=== PATIENT | female | born 1985 | race Caucasian/White ===

== ENCOUNTER 2017-05-17 01:38 | Emergency (ER) | payer BC ==
[2017-05-17] MEDS ORDERED: Morphine 4 MG/ML Syringe IVPUSH ONE (01:43)
[2017-05-17] MEDS ORDERED: Ondansetron 4 MG/2 ML SDV IVPUSH ONE (01:44)
[2017-05-17 02:06] LABS: CHLORIDE,CL 108 mEq/L (98-106); SODIUM,NA 139 mEq/L (136-145)
--- NOTE | 2017-05-17 02:09 | EDM.PDOC ---
ED HPI GENERAL MEDICAL PROBLEM - General Time Seen by Provider: 05/17/17 01:43 Source of Information: Reports: Patient - History of Present Illness INITIAL COMMENTS - FREE TEXT/NARRATIVE: This patient is a pleasant 32 year old female that presents to the ER. Patient reports that she was awakened at midnight by her abdominal pain. Patient reports that the pain is in her upper/lower left abdomen and is stabbing and twisting. Patient reports that the pain is constant. The patient reports eating popcorn about 2 days ago. Patient reports the pain has gradually worsened. She denies cp, soa, n, v, d, f, pelvic pain, pelvic cramping, vaginal bleeding. Her LMP was about 2 weeks ago. Patient does appear uncomfortable in pain. 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 Left Abdominal Pain Score (Numeric/FACES): 8 - Related Data Allergies Allergy/AdvReac Type Severity Reaction Status Date / Time ciprofloxacin [From Cipro] Allergy Blisters Verified 05/17/17 01:59 Home Meds: Home Meds Norethindrone-E.estradiol-Iron [Cgspfpqn-Twreug-Iejj 1-0.02 mg] 1 each PO DAILY 05/17/17 [History] Sertraline HCl 100 mg PO DAILY 05/17/17 [History] ED ROS GENERAL - Review of Systems Review Of Systems: See Below Constitutional: Reports: No Symptoms HEENT: Reports: No Symptoms Respiratory: Reports: No Symptoms Cardiovascular: Reports: No Symptoms Endocrine: Reports: No Symptoms GI/Abdominal: Reports: Abdominal Pain. Denies: Diarrhea, Nausea, Vomiting : Reports: Urgency. Denies: Dysuria, Flank Pain, Frequency, Incontinence, Pain, Urinary Retention Musculoskeletal: Reports: No Symptoms Skin: Reports: No Symptoms Neurological: Reports: No Symptoms Psychiatric: Reports: No Symptoms Hematologic/Lymphatic: Reports: No Symptoms Immunologic: Reports: No Symptoms ED EXAM, GI/ABD - Physical Exam Exam: See Below Exam Limited By: No Limitations General Appearance: Alert, WD/WN, No Apparent Distress, Other (appears in pain) Eyes: Bilateral: Normal Appearance Ears: Normal External Exam, Normal Canal, Hearing Grossly Normal, Normal TMs Nose: Normal Inspection, Normal Mucosa, No Blood Throat/Mouth: Normal Inspection, Normal Lips, Normal Teeth, Normal Gums, Normal Oropharynx, Normal Voice, No Airway Compromise Head: Atraumatic, Normocephalic Neck: Normal Inspection, Supple, Non-Tender, Full Range of Motion Respiratory/Chest: No Respiratory Distress, Lungs Clear, Normal Breath Sounds, No Accessory Muscle Use Cardiovascular: Normal Peripheral Pulses, No Edema, No Gallop, No JVD, No Murmur , No Rub, Tachycardia (106 on exam) GI/Abdominal Exam: Normal Bowel Sounds, Soft, No Organomegaly, No Distention, No Abnormal Bruit, No Mass, Pelvis Stable, Tender (LUQ, LLQ. ). No: Guarding, Rigid, Rebound, Hernia Back Exam: Normal Inspection, Full Range of Motion. No: CVA Tenderness (L), CVA Tenderness (R) Extremities: Normal Inspection, Normal Range of Motion, Non-Tender, No Pedal Edema, Normal Capillary Refill Neurological: Alert, Oriented, Normal Cognition, Normal Gait, No Motor/Sensory Deficits Psychiatric: Anxious Skin Exam: Warm, Dry, Intact, Normal Color, No Rash Lymphatic: No Adenopathy Course - Vital Signs Last Recorded V/S: Last Vital Signs Temp 98.8 F 05/17/17 01:46 Pulse 115 H 05/17/17 01:46 Resp 20 05/17/17 01:46 BP 140/77 05/17/17 02:41 Pulse Ox 100 05/17/17 01:46 - Orders/Labs/Meds Orders: Active Orders 24 hr Category Date Time Status Abdomen Pelvis w Cont [CT] Stat Exams 05/17/17 02:16 Taken Sodium Chloride 0.9% [Normal Saline] 1,000 ml Med 05/17/17 06:09 Ordered IV .BOLUS Medication Orders Sodium Chloride (Normal Saline) 1,000 mls @ 1,000 mls/hr IV .BOLUS ONE Stop: 05/17/17 07:08 Labs: Laboratory Tests 05/17/17 05/17/17 05/17/17 Range/Units 01:50 01:50 02:10 WBC 12.3 H (5.0-10.0) 10^3/uL RBC 5.08 (4.00-5.50) 10^6/uL Hgb 13.1 (12.0-16.0) g/dL Hct 37.9 (37.0-47.0) % MCV 74.6 L (82.0-94.0) fL MCH 25.8 L (27.0-32.0) pg MCHC 34.6 (33.0-38.0) g/dL RDW Coeff of Emil 17.0 H (11.0-15.0) % Plt Count 343 (150-400) 10^3/uL Neut % (Auto) 60.5 (35-85) % Lymph % (Auto) 31.9 (10-55) % [place] % (Auto) 6.1 (0-16) % Eos % (Auto) 1.3 (0-5) % Baso % (Auto) 0.2 (0-3) % Neut # (Auto) 7.45 H (1.80-7.00) 10^3/uL Lymph # (Auto) 3.93 (1.00-4.80) 10^3/uL [place] # (Auto) 0.75 (0.00-0.80) 10^3/uL Eos # (Auto) 0.16 (0.00-0.45) 10^3/uL Baso # (Auto) 0.02 10^3/uL Sodium 139 (136-145) mEq/L Potassium 3.9 (3.5-5.0) mEq/L Chloride 108 H (98-106) mEq/L Carbon Dioxide 24 (21-32) mmol/L BUN 14 D (7-18) mg/dL Creatinine 1.0 (0.6-1.0) mg/dL Est Cr Clr Drug Dosing 77.08 mL/min Estimated GFR (MDRD) > 60 (>=60) mL/min Glucose 119 H D (75-99) mg/dL Calcium 8.8 (8.4-10.1) mg/dL Total Bilirubin 0.2 (0.0-1.0) mg/dL AST 17 (15-37) U/L ALT 32 (12-78) U/L Alkaline Phosphatase 75 (46-116) U/L C-Reactive Protein 4.5 H (0.2-0.8) mg/dL Total Protein 7.5 (6.4-8.2) g/dL Albumin 3.3 L (3.4-5.0) g/dL Amylase 44 (25-115) U/L Urine Color (YELLOW) Urine Appearance (CLEAR) Urine pH (4.5-8.0) Ur Specific [place] (1.003-1.020) Urine Protein (NEGATIVE) mg/dL Urine Glucose (UA) (NEGATIVE) mg/dL Urine Ketones (NEGATIVE) mg/dL Urine Occult Blood (NEGATIVE) Urine Nitrite (NEGATIVE) Urine Bilirubin (NEGATIVE) Urine Urobilinogen (0.2-1.0) EU/dL Ur Leukocyte Esterase (NEGATIVE) Urine RBC (0-5) /HPF Urine WBC (0-5) /HPF Ur Epithelial Cells (NOT SEEN) /HPF Urine Bacteria (NOT SEEN) /HPF Urine Mucus (NOT SEEN) /HPF Urine HCG, Qual Negative 05/17/17 Range/Units 02:12 WBC (5.0-10.0) 10^3/uL RBC (4.00-5.50) 10^6/uL Hgb (12.0-16.0) g/dL Hct (37.0-47.0) % MCV (82.0-94.0) fL MCH (27.0-32.0) pg MCHC (33.0-38.0) g/dL RDW Coeff of Emil (11.0-15.0) % Plt Count (150-400) 10^3/uL Neut % (Auto) (35-85) % Lymph % (Auto) (10-55) % [place] % (Auto) (0-16) % Eos % (Auto) (0-5) % Baso % (Auto) (0-3) % Neut # (Auto) (1.80-7.00) 10^3/uL Lymph # (Auto) (1.00-4.80) 10^3/uL [place] # (Auto) (0.00-0.80) 10^3/uL Eos # (Auto) (0.00-0.45) 10^3/uL Baso # (Auto) 10^3/uL Sodium (136-145) mEq/L Potassium (3.5-5.0) mEq/L Chloride (98-106) mEq/L Carbon Dioxide (21-32) mmol/L BUN (7-18) mg/dL Creatinine (0.6-1.0) mg/dL Est Cr Clr Drug Dosing mL/min Estimated GFR (MDRD) (>=60) mL/min Glucose (75-99) mg/dL Calcium (8.4-10.1) mg/dL Total Bilirubin (0.0-1.0) mg/dL AST (15-37) U/L ALT (12-78) U/L Alkaline Phosphatase (46-116) U/L C-Reactive Protein (0.2-0.8) mg/dL Total Protein (6.4-8.2) g/dL Albumin (3.4-5.0) g/dL Amylase (25-115) U/L Urine Color Yellow (YELLOW) Urine Appearance Clear (CLEAR) Urine pH 5.5 (4.5-8.0) Ur Specific [place] 1.025 H (1.003-1.020) Urine Protein Negative (NEGATIVE) mg/dL Urine Glucose (UA) Negative (NEGATIVE) mg/dL Urine Ketones Negative (NEGATIVE) mg/dL Urine Occult Blood Large H (NEGATIVE) Urine Nitrite Negative (NEGATIVE) Urine Bilirubin Negative (NEGATIVE) Urine Urobilinogen 0.2 (0.2-1.0) EU/dL Ur Leukocyte Esterase Negative (NEGATIVE) Urine RBC 30-40 H (0-5) /HPF Urine WBC Not seen (0-5) /HPF Ur Epithelial Cells Moderate H (NOT SEEN) /HPF Urine Bacteria Few H (NOT SEEN) /HPF Urine Mucus Few H (NOT SEEN) /HPF Urine HCG, Qual Meds: Medications Generic Name Dose Route Start Last Admin Trade Name Freq PRN Reason Stop Dose Admin Sodium Chloride 1,000 mls @ 1,000 mls/hr 05/17/17 06:09 Normal Saline IV 05/17/17 07:08 .BOLUS ONE Discontinued Medications Generic Name Dose Route Start Last Admin Trade Name Freq PRN Reason Stop Dose Admin Hydromorphone HCl 1 mg 05/17/17 03:59 05/17/17 04:06 Dilaudid IVPUSH 05/17/17 04:00 1 mg ONETIME ONE Administration Iopamidol 100 ml 05/17/17 04:04 05/17/17 04:29 Isovue-300 (61%) IVPUSH 05/17/17 04:05 100 ml ONETIME ONE Administration Ketorolac Tromethamine 30 mg 05/17/17 06:09 Toradol IVPUSH 05/17/17 06:10 ONETIME ONE Morphine Sulfate 4 mg 05/17/17 01:43 05/17/17 01:54 Morphine IVPUSH 05/17/17 01:44 4 mg ONETIME ONE Administration Ondansetron HCl 4 mg 05/17/17 01:44 05/17/17 01:54 Zofran IVPUSH 05/17/17 01:45 4 mg STAT ONE Administration Ondansetron HCl 4 mg 05/17/17 03:58 05/17/17 04:08 Zofran IVPUSH 05/17/17 03:59 4 mg NOW STA Administration Tamsulosin HCl 0.4 mg 05/17/17 06:08 Flomax PO 05/17/17 06:09 ONETIME ONE - Radiology Interpretation Free Text/Narrative:: CT with contrast: Discussed with radiologist; bowels are normal, no diverticulitis, no appendicitis. Possible small left ureter stone. CT Results Date: 05/17/17 CT Results Time: 05:00 - Re-Assessments/Exams Free Text/Narrative Re-Assessment/Exam: 05/17/17 06:18 Patient is resting comfortably. Departure - Departure Time of Disposition: 06:12 Disposition: Home, Self-Care 01 Condition: Good Clinical Impression: Ureteral stone - Discharge Information Instructions: Abdominal Pain, Adult, [id number], Kidney Stones, [id number] Additional Instructions: Followup with your primary care provider Return to the ER for worsening of condition or any emergent concerns May strain urine Increase fluids Zofran 4mg 1 pill every 4-6 hours as needed for nausea #12 no refill Flomax 0.4mg 1 pill once a day #7 no refill Augmentin 800mg 1 pill twice a day for 10 days #20 no refill Percocet 5/325mg 1-2 pills every 4-6 hours as needed for pain #32 no refill Diflucan 150mg 1 pill, then repeat in 72 hours #2 no refill (may take after a few days of antibiotic start) - My Orders Last 24 Hours: My Active Orders 05/17/17 02:16 Abdomen Pelvis w Cont [CT] Stat 05/17/17 06:09 Sodium Chloride 0.9% [Normal Saline] 1,000 ml IV .BOLUS - Assessment/Plan Last 24 Hours: My Active Orders 05/17/17 02:16 Abdomen Pelvis w Cont [CT] Stat 05/17/17 06:09 Sodium Chloride 0.9% [Normal Saline] 1,000 ml IV .BOLUS Plan: PLEASE SEE RN NOTE FOR PFSH.
[2017-05-17 03:40] VITALS: BP 140/77
[2017-05-17] MEDS ORDERED: Ondansetron 4 MG/2 ML SDV IVPUSH STA (03:58)
[2017-05-17] MEDS ORDERED: HYDROmorphone 1 MG/ML Syringe IVPUSH ONE (03:59)
[2017-05-17] MEDS ORDERED: Iopamidol 612 MG/ML 100 ML Bottle IVPUSH ONE (04:04)
[2017-05-17] MEDS ORDERED: Tamsulosin 0.4 MG Cap.ER PO ONE (06:08)
[2017-05-17] MEDS ORDERED: Sodium Chloride 0.9% 1,000 ML IV ONE (06:09)
[2017-05-17] MEDS ORDERED: Ketorolac 30 MG/ML SDV IVPUSH ONE (06:09)
== END 2017-05-17 07:20 | disposition home or self-care (01) ==
LOC: CC.ED 01:38
DX: N20.1 Calculus of ureter (principal); Z88.1 Allergy status to other antibiotic agents; Z79.899 Other long term (current) drug therapy
CPT/HCPCS: 36415; 74177; 80053; 81001; 81025; 82150; 85025; 86140; 96361; 96374; 96375; 96376; 99284; A9270; J0153; J1170; J1885; J2270; J2405; J7030; Q9967

== ENCOUNTER 2024-01-25 01:27 | Observation (INO) | payer BC ==
[2024-01-25] MEDS: Morphine 4 MG/ML VIAL IVPUSH ONE (01:42)
[2024-01-25] MEDS: Sodium Chloride 0.9% 1,000 ML IV ONE (01:42)
[2024-01-25] MEDS: Ondansetron 4 MG/2 ML SDV IVPUSH STA (01:43)
[2024-01-25 01:57] LABS: APPEARANCE,URINE CLEAR (CLEAR); BILIRUBIN,URINE NEGATIVE (NEGATIVE); COLOR,URINE YELLOW (YELLOW); GLUCOSE,URINE NEGATIVE (NEGATIVE); KETONES,URINE NEGATIVE (NEGATIVE); LEUKOCYTE ESTERASE,URINE TRACE (NEGATIVE); NITRITE,URINE NEGATIVE (NEGATIVE); OCCULT BLOOD,URINE MODERATE (NEGATIVE); PROTEIN,URINE NEGATIVE (NEGATIVE); UROBILINOGEN,URINE 0.2 EU/dL (0.2-1.0)
[2024-01-25 01:57] LABS: BASOPHILS ABSOLUTE AUTO 0.03 10^3/uL (0.00-0.50); BASOPHILS PERCENT AUTO 0.3 % (0-1); EOSINOPHILS ABSOLUTE AUTO 0.15 10^3/uL (0.00-1.50); EOSINOPHILS PERCENT AUTO 1.5 % (0-6); HEMATOCRIT 44.6 % (37.0-47.0); HEMOGLOBIN 14.5 g/dL (12.0-16.0); IMMATURE GRAN ABSOLUTE AUTO 0.01 10^3/uL (0.00-0.49); IMMATURE GRAN PERCENT AUTO 0.1 % (0.0-4.9); LYMPHOCYTES ABSOLUTE AUTO 2.75 10^3/uL (0.60-5.00); LYMPHOCYTES PERCENT AUTO 27.6 % (24-44); MEAN CORPUSCULAR HEMOGLOBIN 27.5 pg (27.0-32.0); MEAN CORPUSCULAR HGB CONC 32.5 g/dL (32.0-36.0); MEAN CORPUSCULAR VOLUME 84.6 fL (83.0-97.0); NEUTROPHILS ABSOLUTE AUTO 6.43 x10^3/uL (1.80-8.00); NEUTROPHILS PERCENT AUTO 64.5 % (41-71); PLATELET COUNT,PLT 317 10^3/uL (150-400); RED BLOOD CELL COUNT 5.27 x10^6/uL (4.00-5.50)
[2024-01-25 02:05] LABS: BACTERIA,URINE FEW /HPF (NOT SEEN); EPITHELIAL CELLS,URINE FEW /HPF (NOT SEEN); WBC,URINE 0-5 /HPF (0-5); YEAST,URINE OCCASIONAL /HPF (NOT SEEN)
[2024-01-25 02:14] LABS: ALANINE AMINOTRANSFERASE,ALT 24 U/L (12-78); ALBUMIN 4.1 g/dL (3.4-5.0); ALKALINE PHOSPHATASE 80 U/L (46-116); ASPARTATE AMNIOTRANSFERASE,AST 12 U/L (15-37); BILIRUBIN TOTAL 0.4 mg/dL (0.0-1.0); BLOOD UREA NITROGEN,BUN 16 mg/dL (7-18); C-REACTIVE PROTEIN 1.19 mg/dL (<=0.50); CALCIUM 8.9 mg/dL (8.4-10.1); CARBON DIOXIDE,CO2 27 mmol/L (21-32); CHLORIDE,CL 104 mEq/L (98-106); CREATININE 1.1 mg/dL (0.6-1.0); GLUCOSE RANDOM 97 mg/dL (75-99); POTASSIUM,K 4.3 mEq/L (3.5-5.0); PROTEIN TOTAL,TP 7.9 g/dL (6.4-8.2); SODIUM,NA 140 mEq/L (136-145)
[2024-01-25 02:22] LABS: ESTIMATED GFR 65 mL/min (>=60)
[2024-01-25] MEDS: Tamsulosin 0.4 MG Cap.ER PO ONE (02:28)
[2024-01-25] MEDS: Ketorolac 30 MG/ML SDV IVPUSH ONE (02:28)
[2024-01-25] MEDS: HYDROmorphone 1 MG/ML Syringe IVPUSH ONE (02:52)
[2024-01-25] MEDS ORDERED: Ondansetron 4 MG Tab.DIS PO PRN (03:40)
[2024-01-25] MEDS: Sodium Chloride 0.9% 1,000 ML IV SCH (03:58)
[2024-01-25] MEDS: Ondansetron 4 MG/2 ML SDV IV PRN (06:05)
[2024-01-25] MEDS: HYDROmorphone 1 MG/ML Syringe IVPUSH PRN (07:25)
[2024-01-25] MEDS ORDERED: busPIRone 5 MG Tab PO SCH (08:00)
[2024-01-25] MEDS ORDERED: Beta-Carotene (Vitamin A) w/Vitamin C & E plus Minerals Tab PO SCH (08:00)
[2024-01-25 08:04] LABS: BASOPHILS ABSOLUTE AUTO 0.03 10^3/uL (0.00-0.50); BASOPHILS PERCENT AUTO 0.4 % (0-1); EOSINOPHILS ABSOLUTE AUTO 0.08 10^3/uL (0.00-1.50); HEMATOCRIT 38.1 % (37.0-47.0); HEMOGLOBIN 12.4 g/dL (12.0-16.0); IMMATURE GRAN ABSOLUTE AUTO 0.01 10^3/uL (0.00-0.49); IMMATURE GRAN PERCENT AUTO 0.1 % (0.0-4.9); LYMPHOCYTES ABSOLUTE AUTO 2.73 10^3/uL (0.60-5.00); LYMPHOCYTES PERCENT AUTO 34.3 % (24-44); MEAN CORPUSCULAR HEMOGLOBIN 27.9 pg (27.0-32.0); MEAN CORPUSCULAR HGB CONC 32.5 g/dL (32.0-36.0); MEAN CORPUSCULAR VOLUME 85.6 fL (83.0-97.0); MONOCYTES PERCENT AUTO 7.5 % (0-10); NEUTROPHILS ABSOLUTE AUTO 4.51 x10^3/uL (1.80-8.00); NEUTROPHILS PERCENT AUTO 56.7 % (41-71); PLATELET COUNT,PLT 263 10^3/uL (150-400); RED BLOOD CELL COUNT 4.45 x10^6/uL (4.00-5.50)
[2024-01-25 08:19] LABS: CALCIUM 8.1 mg/dL (8.4-10.1); CREATININE 0.9 mg/dL (0.6-1.0); EST CRCL DRUG DOSING (CG) 82.98 mL/min; MAGNESIUM 1.9 mg/dL (1.8-2.4)
[2024-01-25] MEDS ORDERED: Ketorolac 30 MG/ML SDV IVPUSH PRN (08:30)
[2024-01-25 09:33] VITALS: PULSE 83
[2024-01-25] MEDS: Acetaminophen/HYDROcodone 325-5 MG Tab PO PRN (11:47)
[2024-01-25 13:25] VITALS: BP 114/76
[2024-01-25] MEDS: Take Home: Ondansetron 4 MG Tab.DIS, 2 Tab Pack PO ONE (13:41)
[2024-01-25] MEDS: Take Home: Acetaminophen/HYDROcodone 325-5 MG, 2 Tab Pack PO ONE (13:41)
== END 2024-01-25 13:45 | disposition home or self-care (01) ==
LOC: CC.ED 01:27 → CC.MS 03:29 → UNDOADMOB 03:33 → UNDODISOB 13:45
PROVIDERS: ADMIT Nurse Practitioner; ATTEND Nurse Practitioner
DX: N20.1 Calculus of ureter (principal); N23 Unspecified renal colic; F32.A Depression, unspecified; Z88.8 Allergy status to other drugs, medicaments and biological substances; Z79.899 Other long term (current) drug therapy
CPT/HCPCS: 36415; 74176; 80048; 80053; 81001; 83735; 85025; 86140; 96361; 96374; 96375; 99285-25; A9270-GY; J1170; J1885; J2270; J2405; J7030